=== PATIENT | male | born 1955 | race Caucasian/White ===

== ENCOUNTER 2020-11-07 14:15 | Inpatient (IN) ==
[2020-11-07 15:14] LABS: Basophils # 0.1 K/mcL (0.0-0.2); Basophils % 1.6 %; Eosinophils # 0.4 K/mcL (0.0-0.6); Eosinophils % 5.4 %; Hematocrit 33.4 % (37.5-50.1); Immature Granulocytes % 0.4 % (0-4); Lymphocytes # 1.9 K/mcL (0.6-4.6); Lymphocytes % 22.9 %; Mean Corpuscular HGB Conc 35.3 g/dL (31.6-35.5); Mean Corpuscular Hemoglobin 31.9 pg (28.0-33.3); Mean Corpuscular Volume 90.3 fL (83.0-100.0); Mean Platelet Volume 8.6 fL (9.4-12.4); Monocytes # 0.7 K/mcL (0.0-1.3); Monocytes % 8.9 %; Platelet Count 214 K/mcL (140-400); Segmented Neutrophils % 60.8 %
[2020-11-07 15:19] LABS: Hemoglobin 11.8 g/dL (12.9-16.9); White Blood Count 8.2 K/mcL (4.3-11.1)
[2020-11-07 16:19] LABS: Bilirubin,Urine Negative (Negative); Blood,Urine Negative (Negative); Clarity,Urine Clear (Clear); Color,Urine Light-Yellow (Yellow); Glucose,Urine (UA) Normal (Normal); Ketones,Urine Negative (Negative); Leukocyte Esterase,Urine Negative (Negative); Nitrite,Urine Negative (Negative); PH,Urine 6.5 pH Units (5.0-8.0); Protein,Urine Trace mg/dL (Neg-Trace); Specific Gravity,Urine 1.015 (1.010-1.025); Urobilinogen,Urine Normal (Normal)
[2020-11-07 16:20] LABS: Potassium,Urine 43.4 mEq/L; Sodium, Urine 38.9 mEq/L
[2020-11-07 16:23] LABS: Alanine Aminotransferase 14 Units/L (7-52); Albumin 4.4 g/dL (3.5-5.7); Alkaline Phosphatase 93 Units/L (34-104); Aspartate Amino Transferase 21 Units/L (13-39); BUN/Creatinine Ratio 11 (6-26); Bilirubin,Direct 0.1 mg/dL (0.0-0.2); Bilirubin,Indirect 0.4 mg/dL (0.0-1.0); Bilirubin,Total 0.5 mg/dL (0.3-1.0); Blood Urea Nitrogen 9 mg/dL (8-23); Calcium 9.2 mg/dL (8.6-10.3); Carbon Dioxide 21 mEq/L (23-29); Chloride 87 mEq/L (98-107); Globulin 2.2 g/dL (2.4-3.5); Glucose 96 mg/dL (70-105); Osmolality,Calculated 249 (280-300); Potassium 3.6 mEq/L (3.5-5.1); Sodium 120 mEq/L (136-145); Total Protein 6.6 g/dL (6.4-8.9); Troponin I < 0.03 ng/mL (< 0.04); eGFR For African Americans > 60 (> 60); eGFR For Non-African Americans > 60 (> 60)
[2020-11-07] MEDS ORDERED: 0.9 % Sodium Chloride 500 ML IVC ONE (16:30)
[2020-11-07] MEDS ORDERED: Naloxone 0.4 MG/ML INJ IVP PRN (16:42)
[2020-11-07] MEDS ORDERED: Ondansetron 4 MG/2 ML VIAL IVP PRN (16:42)
[2020-11-07] MEDS ORDERED: Ipratropium/Albuterol Neb 3 ML IH PRN (16:44)
[2020-11-07] MEDS ORDERED: 0.9 % Sodium Chloride 1,000 ML IVC SCH (17:30)
[2020-11-07] MEDS ORDERED: *HR* OxyCODONE/APAP 5/325 TABLET PO PRN (17:37)
[2020-11-07] MEDS: Gabapentin 300 MG CAPSULE PO SCH (18:08)
[2020-11-08 05:02] LABS: Prothrombin Time 11.3 Seconds (9.4-12.1)
[2020-11-08 05:04] LABS: Activated Partial Thrombo Time 28.1 Seconds (26.0-36.0); BUN/Creatinine Ratio 11 (6-26); Blood Urea Nitrogen 7 mg/dL (8-23); Carbon Dioxide 24 mEq/L (23-29); Chloride 89 mEq/L (98-107); Chol/HDL Ratio 2.9 (0-4.9); Cholesterol 182 mg/dL (< 200); Glucose 88 mg/dL (70-105); HDL Cholesterol 62 mg/dL (40-59); LDL Cholesterol,Calculated 103 mg/dL (< 100); Osmolality,Calculated 243 (280-300); Phosphorous 3.5 mg/dL (2.7-4.5); Potassium 3.5 mEq/L (3.5-5.1); Sodium 118 mEq/L (136-145); Triglycerides 84 mg/dL (< 150); eGFR For African Americans > 60 (> 60); eGFR For Non-African Americans > 60 (> 60)
[2020-11-08 05:13] LABS: Thyroid Stimulating Hormone 4.698 mcIU/mL (0.340-5.600)
[2020-11-08] MEDS: *HR* Enoxaparin 40 MG/0.4 ML SYRINGE SQ SCH (05:24)
[2020-11-08] MEDS: levoFLOXacin 750 MG/150 ML 750 MG/150 ML BAG IVPB SCH (07:46)
[2020-11-08] MEDS: Gabapentin 300 MG CAPSULE PO SCH ×2 (07:46→16:49)
[2020-11-08] MEDS: Aspirin Enteric Coated 81 MG Tablet PO SCH (07:46)
[2020-11-08] MEDS ORDERED: Lidocaine HCL 4 ML Topical Solution (Laryng-O-Jet Kit Sterile Pak) TP ONE (10:02)
[2020-11-08] MEDS ORDERED: *HR* Succinylcholine 200 MG/10 ML VIAL IVP ONE (10:02)
[2020-11-08] MEDS ORDERED: Lidocaine -MPF 2% 5 ML VIAL ONE (10:02)
[2020-11-08] MEDS ORDERED: Ringers Solution, Lactated 1,000 ML IVC SCH (10:15)
[2020-11-08] MEDS ORDERED: 0.9 % Sodium Chloride 1,000 ML IVC SCH (10:15)
[2020-11-08] MEDS ORDERED: Ondansetron 4 MG/2 ML VIAL IVP PRN (10:16)
[2020-11-08] MEDS ORDERED: Ondansetron 4 MG/2 ML VIAL ONE (10:44)
[2020-11-08] MEDS ORDERED: *HR* EPINEPHrine 1 MG/10 ML SYRINGE INTRATRACH ONE (11:08)
[2020-11-08 13:08] LABS: Source of Body Fluid LEFT UPPER LOBE LUNG
[2020-11-08 16:57] LABS: Appearance of Body Fluid Hazy (Clear); Volume of Body Fluid 26 mL
[2020-11-09 02:25] LABS: BUN/Creatinine Ratio 13 (6-26); Blood Urea Nitrogen 10 mg/dL (8-23); Calcium 8.9 mg/dL (8.6-10.3); Carbon Dioxide 24 mEq/L (23-29); Chloride 91 mEq/L (98-107); Glucose 111 mg/dL (70-105); Magnesium 1.9 mg/dL (1.6-2.6); Osmolality,Calculated 256 (280-300); Phosphorous 3.4 mg/dL (2.7-4.5); Sodium 123 mEq/L (136-145); eGFR For African Americans > 60 (> 60); eGFR For Non-African Americans > 60 (> 60)
[2020-11-09] MEDS: *HR* Enoxaparin 40 MG/0.4 ML SYRINGE SQ SCH (05:06)
[2020-11-09] MEDS: amLODIPine 5 MG TABLET PO SCH (08:28)
[2020-11-09] MEDS: Aspirin Enteric Coated 81 MG Tablet PO SCH (08:28)
[2020-11-09] MEDS: levoFLOXacin 750 MG/150 ML 750 MG/150 ML BAG IVPB SCH (08:29)
[2020-11-09] MEDS: Gabapentin 300 MG CAPSULE PO SCH ×2 (08:29→17:20)
[2020-11-10] MEDS: *HR* Enoxaparin 40 MG/0.4 ML SYRINGE SQ SCH (05:18)
[2020-11-10 07:16] LABS: BUN/Creatinine Ratio 11 (6-26); Blood Urea Nitrogen 10 mg/dL (8-23); Calcium 9.3 mg/dL (8.6-10.3); Carbon Dioxide 25 mEq/L (23-29); Chloride 94 mEq/L (98-107); Glucose 92 mg/dL (70-105); Osmolality,Calculated 263 (280-300); Potassium 3.7 mEq/L (3.5-5.1); Sodium 127 mEq/L (136-145); eGFR For African Americans > 60 (> 60); eGFR For Non-African Americans > 60 (> 60)
[2020-11-10] MEDS: levoFLOXacin 750 MG/150 ML 750 MG/150 ML BAG IVPB SCH (08:35)
[2020-11-10] MEDS: Aspirin Enteric Coated 81 MG Tablet PO SCH (08:36)
[2020-11-10] MEDS: amLODIPine 5 MG TABLET PO SCH (08:36)
[2020-11-10] MEDS: Gabapentin 300 MG CAPSULE PO SCH (08:37)
[2020-11-10 11:05] VITALS: BP 163/74; PULSE 91; TEMP 97.6; O2SAT 96
== END 2020-11-10 12:50 | disposition home or self-care (01) | DRG 643 ==
LOC: 3BNU 14:15 → EMEROOARM 14:15 → 3BNU 17:37 → SUATTDRO 11-08 16:32
PROVIDERS: ADMIT Internal Medicine; ATTEND Internal Medicine

== ENCOUNTER 2021-01-06 18:21 | Inpatient (IN) ==
[2021-01-06 20:06] LABS: Alanine Aminotransferase 20 Units/L (7-52); Albumin 3.7 g/dL (3.5-5.7); Albumin/Globulin Ratio 1.5 (1.1-2.2); Alkaline Phosphatase 104 Units/L (34-104); Aspartate Amino Transferase 25 Units/L (13-39); BUN/Creatinine Ratio 15 (6-26); Bilirubin,Total 0.7 mg/dL (0.3-1.0); Blood Urea Nitrogen 10 mg/dL (8-23); Calcium 8.1 mg/dL (8.6-10.3); Carbon Dioxide 22 mEq/L (23-29); Chloride 75 mEq/L (98-107); Globulin 2.5 g/dL (2.4-3.5); Glucose 105 mg/dL (70-105); Osmolality,Calculated 223 (280-300); Potassium 2.9 mEq/L (3.5-5.1); Sodium 107 mEq/L (136-145); Total Protein 6.2 g/dL (6.4-8.9); eGFR For African Americans > 60 (> 60); eGFR For Non-African Americans > 60 (> 60)
[2021-01-06 20:47] LABS: Eosinophils # 0.1 K/mcL (0.0-0.6); Hematocrit 27.1 % (37.5-50.1); Hemoglobin 11.1 g/dL (12.9-16.9); Mean Corpuscular Hemoglobin 33.8 pg (28.0-33.3); Mean Corpuscular Volume 82.6 fL (83.0-100.0); Red Blood Count 3.28 M/mcL (4.19-5.50); Red Cell Distribution Width 12.2 % (11.5-14.5); White Blood Count 2.4 K/mcL (4.3-11.1)
[2021-01-06 20:51] LABS: Bilirubin,Urine Negative (Negative); Blood,Urine Negative (Negative); Clarity,Urine Clear (Clear); Color,Urine Light-Yellow (Yellow); Glucose,Urine (UA) Normal (Normal); Ketones,Urine Negative (Negative); Leukocyte Esterase,Urine Negative (Negative); Nitrite,Urine Negative (Negative); PH,Urine 6.5 pH Units (5.0-8.0); Protein,Urine Negative (Neg-Trace); Specific Gravity,Urine 1.015 (1.010-1.025); Urobilinogen,Urine Normal (Normal)
[2021-01-06 20:52] LABS: Mean Platelet Volume 8.8 fL (9.4-12.4); Neutrophils # 0.9 K/mcL (1.6-8.9); Platelet Count 173 K/mcL (140-400); Segmented Neutrophils % 36.5 %
[2021-01-06 20:53] LABS: Basophils % 1.7 %; Eosinophils % 3.4 %; Lymphocytes # 1.2 K/mcL (0.6-4.6); Lymphocytes % 49.6 %; Monocytes # 0.2 K/mcL (0.0-1.3); Monocytes % 8.8 %
[2021-01-06] MEDS ORDERED: Naloxone 0.4 MG/ML INJ IVP PRN (23:17)
[2021-01-06] MEDS ORDERED: 0.9 % Sodium Chloride 1,000 ML IVC SCH (23:30)
[2021-01-07] MEDS ORDERED: Ipratropium/Albuterol Neb 3 ML IH PRN (01:03)
[2021-01-07 03:44] LABS: BUN/Creatinine Ratio 11 (6-26); Blood Urea Nitrogen 6 mg/dL (8-23); Calcium 8.1 mg/dL (8.6-10.3); Carbon Dioxide 23 mEq/L (23-29); Chloride 77 mEq/L (98-107); Glucose 105 mg/dL (70-105); Osmolality,Calculated 226 (280-300); Potassium 2.6 mEq/L (3.5-5.1); Sodium 109 mEq/L (136-145); eGFR For African Americans > 60 (> 60); eGFR For Non-African Americans > 60 (> 60)
[2021-01-07] MEDS: *HR* Heparin 5,000 UNIT/ML VIAL SQ SCH ×2 (05:02→17:21)
[2021-01-07 05:50] LABS: BUN/Creatinine Ratio 11 (6-26); Blood Urea Nitrogen 6 mg/dL (8-23); Calcium 8.2 mg/dL (8.6-10.3); Carbon Dioxide 23 mEq/L (23-29); Chloride 77 mEq/L (98-107); Glucose 105 mg/dL (70-105); Osmolality,Calculated 224 (280-300); Potassium 2.6 mEq/L (3.5-5.1); Sodium 108 mEq/L (136-145); eGFR For African Americans > 60 (> 60); eGFR For Non-African Americans > 60 (> 60)
[2021-01-07 06:55] LABS: BUN/Creatinine Ratio 11 (6-26); Blood Urea Nitrogen 6 mg/dL (8-23); Calcium 8.3 mg/dL (8.6-10.3); Carbon Dioxide 25 mEq/L (23-29); Chloride 77 mEq/L (98-107); Glucose 103 mg/dL (70-105); Osmolality,Calculated 226 (280-300); Potassium 2.8 mEq/L (3.5-5.1); Sodium 109 mEq/L (136-145); eGFR For African Americans > 60 (> 60); eGFR For Non-African Americans > 60 (> 60)
[2021-01-07] MEDS: amLODIPine 5 MG TABLET PO SCH (08:16)
[2021-01-07] MEDS: Aspirin Enteric Coated 81 MG Tablet PO SCH (08:16)
[2021-01-07 09:24] LABS: BUN/Creatinine Ratio 9 (6-26); Blood Urea Nitrogen 5 mg/dL (8-23); Calcium 8.2 mg/dL (8.6-10.3); Carbon Dioxide 23 mEq/L (23-29); Chloride 77 mEq/L (98-107); Glucose 112 mg/dL (70-105); Osmolality,Calculated 224 (280-300); Potassium 2.9 mEq/L (3.5-5.1); Sodium 108 mEq/L (136-145); eGFR For African Americans > 60 (> 60); eGFR For Non-African Americans > 60 (> 60)
[2021-01-07 09:39] LABS: Mean Platelet Volume 8.9 fL (9.4-12.4); Platelet Count 146 K/mcL (140-400); Red Cell Distribution Width 12.4 % (11.5-14.5); White Blood Count 2.3 K/mcL (4.3-11.1)
[2021-01-07 11:25] LABS: Hematocrit 21.8 % (37.5-50.1); Mean Corpuscular Hemoglobin 32.3 pg (28.0-33.3); Mean Corpuscular Volume 85.8 fL (83.0-100.0)
[2021-01-07 11:26] LABS: Mean Corpuscular HGB Conc 37.6 g/dL (31.6-35.5)
[2021-01-07 11:32] LABS: Hemoglobin 8.2 g/dL (12.9-16.9)
[2021-01-07] MEDS: Melatonin 3 MG TABLET PO PRN (20:43)
[2021-01-08 01:42] LABS: BUN/Creatinine Ratio 8 (6-26); Blood Urea Nitrogen 5 mg/dL (8-23); Calcium 8.2 mg/dL (8.6-10.3); Carbon Dioxide 21 mEq/L (23-29); Chloride 86 mEq/L (98-107); Glucose 119 mg/dL (70-105); Osmolality,Calculated 238 (280-300); Potassium 3.2 mEq/L (3.5-5.1); Sodium 115 mEq/L (136-145); eGFR For African Americans > 60 (> 60); eGFR For Non-African Americans > 60 (> 60)
[2021-01-08 04:01] LABS: Eosinophils # 0.1 K/mcL (0.0-0.6); Hemoglobin 9.2 g/dL (12.9-16.9); Mean Corpuscular Hemoglobin 32.3 pg (28.0-33.3); Mean Corpuscular Volume 83.2 fL (83.0-100.0); Neutrophils # 0.7 K/mcL (1.6-8.9); Red Blood Count 2.85 M/mcL (4.19-5.50); Red Cell Distribution Width 12.4 % (11.5-14.5)
[2021-01-08 04:08] LABS: Mean Corpuscular HGB Conc 38.8 g/dL (31.6-35.5)
[2021-01-08 04:09] LABS: Mean Platelet Volume 8.9 fL (9.4-12.4); Platelet Count 154 K/mcL (140-400); White Blood Count 1.9 K/mcL (4.3-11.1)
[2021-01-08 04:10] LABS: Monocytes # 0.2 K/mcL (0.0-1.3)
[2021-01-08 04:13] LABS: Hematocrit 23.7 % (37.5-50.1)
[2021-01-08 05:08] LABS: Platelet Estimate Normal (Normal); Reactive Lymphocytes Present (Not Present)
[2021-01-08] MEDS: *HR* Heparin 5,000 UNIT/ML VIAL SQ SCH ×2 (05:35→17:59)
[2021-01-08] MEDS: amLODIPine 5 MG TABLET PO SCH (08:01)
[2021-01-08] MEDS: Aspirin Enteric Coated 81 MG Tablet PO SCH (08:02)
[2021-01-08 15:07] LABS: Immature Reticulocyte % 11.7 % (11.0-38.0); Retculocyte # 0.04 M/mcL (0.05-0.10); Reticulocyte % 1.4 % (1.6-2.8)
[2021-01-08 15:26] LABS: % Iron Saturation 37 % (20-55); Iron 105 mcg/dL (65-175); Transferrin 204 mg/dL (203-362)
[2021-01-08 15:43] LABS: Ferritin 554 ng/mL (20-250)
[2021-01-08 15:49] LABS: Folate 11.4 ng/mL (3.0-16.0)
[2021-01-08] MEDS: Melatonin 3 MG TABLET PO PRN (21:47)
[2021-01-09] MEDS: *HR* Heparin 5,000 UNIT/ML VIAL SQ SCH (06:34)
[2021-01-09 07:25] LABS: BUN/Creatinine Ratio 11 (6-26); Blood Urea Nitrogen 7 mg/dL (8-23); Calcium 9.1 mg/dL (8.6-10.3); Carbon Dioxide 24 mEq/L (23-29); Chloride 94 mEq/L (98-107); Glucose 106 mg/dL (70-105); Osmolality,Calculated 258 (280-300); Potassium 3.5 mEq/L (3.5-5.1); Sodium 125 mEq/L (136-145); eGFR For African Americans > 60 (> 60); eGFR For Non-African Americans > 60 (> 60)
[2021-01-09 09:06] LABS: Eosinophils # 0.1 K/mcL (0.0-0.6); Hematocrit 26.5 % (37.5-50.1); Hemoglobin 10.2 g/dL (12.9-16.9); Mean Corpuscular Hemoglobin 33.4 pg (28.0-33.3); Mean Corpuscular Volume 86.9 fL (83.0-100.0); Mean Platelet Volume 9.9 fL (9.4-12.4); Neutrophils # 0.6 K/mcL (1.6-8.9); Platelet Count 132 K/mcL (140-400); Red Blood Count 3.05 M/mcL (4.19-5.50); Red Cell Distribution Width 13.2 % (11.5-14.5); White Blood Count 1.6 K/mcL (4.3-11.1)
[2021-01-09 09:15] LABS: Mean Corpuscular HGB Conc 38.5 g/dL (31.6-35.5)
[2021-01-09 09:19] LABS: Lymphocytes # 0.7 K/mcL (0.6-4.6); Monocytes # 0.2 K/mcL (0.0-1.3); Platelet Estimate Normal (Normal); Poikilocytosis 1+ (Not Present); Spherocytes 1+ (Not Present)
[2021-01-09 09:20] LABS: Anisocytosis 1+ (Not Present); Reactive Lymphocytes Present (Not Present)
[2021-01-09] MEDS: Aspirin Enteric Coated 81 MG Tablet PO SCH (09:26)
[2021-01-09] MEDS: amLODIPine 5 MG TABLET PO SCH (09:26)
[2021-01-09 11:02] VITALS: BP 141/87; PULSE 87; TEMP 98.3; O2SAT 97
== END 2021-01-09 11:57 | disposition home or self-care (01) | DRG 644 ==
LOC: 2NENU 18:21 → EMEROOARM 18:21 → SUATTDRO 23:20 → OBSVTOIN 23:20 → 2NENU 01-07 00:41 → 3BNU 01-08 17:38
PROVIDERS: ADMIT Internal Medicine; ATTEND Internal Medicine